=== PATIENT | female | born 1945 | race Caucasian/White ===

== ENCOUNTER 2017-06-12 16:14 | Inpatient (IN) | payer MEDICARE, OTHER ==
[2017-06-12] MEDS ORDERED: ACETAMINOPHEN 325 MG TAB PO (19:00)
[2017-06-12] MEDS ORDERED: HYDROCODONE/APAP (5/325) TAB PO ×2 (19:00)
[2017-06-12] MEDS ORDERED: NACL 0.9% 3 ML SYG IV (19:00)
[2017-06-12] MEDS ORDERED: ZOLPIDEM 5 MG TAB PO (19:00)
[2017-06-12] MEDS: predniSONE 5 MG TAB PO (19:00)
[2017-06-12] MEDS ORDERED: DOCUSATE SODIUM 100 MG CAP PO (19:00)
[2017-06-12] MEDS ORDERED: ONDANSETRON 4 MG INJ IV (19:00)
[2017-06-12] MEDS ORDERED: FLUTICASONE 0.05% 16 GM NAS SPRAY NASAL (21:00)
[2017-06-12] MEDS: FLUTICASONE 0.05% 16 GM NAS SPRAY NASAL (21:00)
[2017-06-12] MEDS ORDERED: SALMETEROL/FLUTICASONE 250/50 INHA INH (21:00)
[2017-06-12] MEDS: SOD CHLORIDE 0.9% 1,000 ML IV (21:39)
[2017-06-12] MEDS: AMOXICILLIN 500 MG CAP PO (21:43)
[2017-06-12 21:44] LABS: ADD MAN DIFF? NO
[2017-06-12] MEDS: HYDROCODONE/APAP (10/325) TAB PO (21:44)
[2017-06-12 21:45] LABS: BASOPHILS % 0.2 % (0.0-2.0); EOSINOPHILS % 0.1 % (0.0-7.0); HEMATOCRIT 39.7 % (37.0-47.0); HEMOGLOBIN 13.3 g/dl (12.0-16.0); LYMPHOCYTES # 1.7 10^3/ul (0.8-2.9); LYMPHOCYTES % 18.5 % (15.0-51.0); MEAN CORPUSCULAR HEMOGLOBIN 31.4 pg (29.0-33.0); MEAN CORPUSCULAR HGB CONC 33.5 g/dl (32.0-37.0); MEAN CORPUSCULAR VOLUME 93.9 fl (82.0-101.0); MEAN PLATELET VOLUME 11.8 fl (7.4-10.4); MONOCYTE # 0.7 10^3/ul (0.3-0.9); MONOCYTES % 7.5 % (0.0-11.0); NEUTROPHIL # 6.6 10^3/ul (1.6-7.5); NEUTROPHILS % 73.3 % (39.0-77.0); PLATELET COUNT 197 10^3/UL (140-415); RED BLOOD COUNT 4.23 10^6/ul (4.20-5.40); RED CELL DISTRIBUTION WIDTH 12.7 % (11.5-14.5)
[2017-06-12] MEDS ORDERED: METHYLPHENIDATE 5 MG TAB PO (22:00)
[2017-06-12] MEDS ORDERED: SALMETEROL/FLUTICASONE 100/50 INHA INH (22:00)
[2017-06-12 22:08] LABS: ALANINE AMINOTRANSFERASE 39 IU/L (13-69); ALBUMIN 4.1 g/dl (3.3-4.9); ALBUMIN/GLOBULIN RATIO 1.32; ALKALINE PHOSPHATASE 47 IU/L (42-121); AMYLASE 89 U/L (11-123); ANION GAP 16 (8-16); ASPARTATE AMINO TRANSFERASE 29 IU/L (15-46); BILIRUBIN,INDIRECT 0.4 mg/dl (0-1.1); BILIRUBIN,TOTAL 0.4 mg/dl (0.2-1.3); BLOOD UREA NITROGEN 14 mg/dl (7-20); CALCIUM 9.3 mg/dl (8.4-10.2); CARBON DIOXIDE 27 mmol/L (21-31); CHLORIDE 105 mmol/L (97-110); CREATININE 0.61 mg/dl (0.44-1.00); GLUCOSE 89 mg/dl (70-220); LIPASE 81 U/L (23-300); MAGNESIUM 2.1 mg/dl (1.7-2.5); PHOSPHORUS 3.6 mg/dl (2.5-4.9); POTASSIUM 4.2 mmol/L (3.5-5.1); SODIUM 144 mmol/L (135-144); TOTAL PROTEIN 7.2 g/dl (6.1-8.1)
[2017-06-12 22:54] LABS: ERYTHROCYTE SEDIMENTATION RATE 10 mm/Hr (0-30)
[2017-06-13] MEDS: AMOXICILLIN 500 MG CAP PO ×6 (01:25→23:07)
[2017-06-13] MEDS: LEVOTHYROXINE 75 MCG TAB PO ×2 (01:26→09:33)
[2017-06-13] MEDS: PANTOPRAZOLE (EC) 40 MG TAB PO (01:26)
[2017-06-13] MEDS: HYDROCODONE/APAP (10/325) TAB PO ×3 (04:46→20:49)
[2017-06-13] MEDS: FLUTICASONE 0.05% 16 GM NAS SPRAY NASAL ×2 (09:00→20:40)
[2017-06-13] MEDS: predniSONE 5 MG TAB PO (09:21)
[2017-06-13] MEDS: SALMETEROL/FLUTICASONE 250/50 INHA INH ×2 (09:23→20:40)
[2017-06-13] MEDS ORDERED: LIDOCAINE 100 MG SYRINGE (12:33)
[2017-06-13] MEDS ORDERED: PROPOFOL 40 ML (12:33)
[2017-06-13] MEDS ORDERED: MIDAZOLAM IV (13:29)
[2017-06-13] MEDS: SOD CHLORIDE 0.9% 1,000 ML IV (14:23)
[2017-06-14] MEDS: AMOXICILLIN 500 MG CAP PO ×2 (01:20→12:15)
[2017-06-14] MEDS: PANTOPRAZOLE (EC) 40 MG TAB PO (01:21)
[2017-06-14] MEDS: LEVOTHYROXINE 75 MCG TAB PO (01:21)
[2017-06-14] MEDS: HYDROCODONE/APAP (10/325) TAB PO ×2 (02:25→12:16)
[2017-06-14] MEDS: SOD CHLORIDE 0.9% 1,000 ML IV ×2 (03:54→12:27)
[2017-06-14] MEDS ORDERED: METOCLOPRAMIDE 10 MG INJ IV (09:00)
[2017-06-14] MEDS: FLUTICASONE 0.05% 16 GM NAS SPRAY NASAL (09:56)
[2017-06-14] MEDS: SALMETEROL/FLUTICASONE 250/50 INHA INH (09:56)
[2017-06-14] MEDS: predniSONE 10 MG TAB PO (12:16)
[2017-06-14 15:50] LABS: ADD UMIC YES; UR ASCORBIC ACID NEGATIVE (NEGATIVE); UR BILIRUBIN (Dip) NEGATIVE (NEGATIVE); UR BLOOD (Dip) 1+ mg/dL (NEGATIVE); UR CLARITY CLEAR (CLEAR); UR COLOR STRAW (YELLOW); UR GLUCOSE (Dip) NEGATIVE (NEGATIVE); UR KETONES (Dip) NEGATIVE (NEGATIVE); UR LEUKOCYTE ESTERASE (Dip) NEGATIVE Leu/ul (NEGATIVE); UR NITRITE (Dip) NEGATIVE (NEGATIVE); UR RBC 1 /HPF (0-5); UR SPECIFIC GRAVITY (Dip) 1.006 (1.003-1.030); UR TOTAL PROTEIN (Dip) NEGATIVE (NEGATIVE); UR UROBILINOGEN (Dip) NEGATIVE (NEGATIVE); UR WBC 0 /HPF (0-5)
[2017-06-14 15:52] LABS: OCCULT BLOOD STOOL NEGATIVE (NEGATIVE)
[2017-06-14 16:02] LABS: PROTEIN/CREAT RATIO 0.32 RATIO
== END 2017-06-14 20:15 | disposition home or self-care (01) | DRG 392 ==
LOC: MS2 16:14
PROC: 0DB58ZX Excision of Esophagus, Via Natural or Artificial Opening Endoscopic, Diagnostic (ICD-10-PCS; principal; 2017-06-13 11:52)
PROC: 0DB78ZX Excision of Stomach, Pylorus, Via Natural or Artificial Opening Endoscopic, Diagnostic (ICD-10-PCS; 2017-06-13 11:52)
PROC: 0DB68ZX Excision of Stomach, Via Natural or Artificial Opening Endoscopic, Diagnostic (ICD-10-PCS; 2017-06-13 11:52)
DX: K21.0 Gastro-esophageal reflux disease with esophagitis (principal); R63.0 Anorexia; E03.9 Hypothyroidism, unspecified; K29.70 Gastritis, unspecified, without bleeding; B18.2 Chronic viral hepatitis C; Z68.29 Body mass index [BMI] 29.0-29.9, adult; K31.7 Polyp of stomach and duodenum
CPT/HCPCS: 71045; 76700; 78264; 80053; 81001; 81003; 82150; 82270; 82570; 83690; 83735; 84100; 85025; 85651; 88305; 88312; 88313; 93005

== ENCOUNTER 2018-09-09 16:59 | Observation (INO) | payer MEDICARE, OTHER ==
[2018-09-09] MEDS ORDERED: NACL 0.9% 3 ML SYG IV (17:30)
[2018-09-09] MEDS ORDERED: ONDANSETRON 4 MG INJ IV (17:30)
[2018-09-09] MEDS ORDERED: ACETAMINOPHEN 325 MG TAB PO (17:30)
[2018-09-09] MEDS: METOCLOPRAMIDE 10 MG INJ IV ×2 (18:00→23:25)
[2018-09-09] MEDS ORDERED: PANTOPRAZOLE 40 MG INJ IV (18:00)
[2018-09-09] MEDS: predniSONE 5 MG TAB PO (18:00)
[2018-09-09 18:03] LABS: ADD MAN DIFF? NO
[2018-09-09 18:05] LABS: WHITE BLOOD COUNT 8.3 10^3/ul (4.8-10.8)
[2018-09-09 18:05] LABS: BASOPHIL # 0.1 10^3/ul (0.0-0.1); BASOPHILS % 0.6 % (0.0-2.0); EOSINOPHILS # 0.4 10^3/ul (0.0-0.5); EOSINOPHILS % 4.3 % (0.0-7.0); HEMATOCRIT 42.3 % (37.0-47.0); HEMOGLOBIN 13.8 g/dl (12.0-16.0); LYMPHOCYTES % 24.1 % (15.0-51.0); MEAN CORPUSCULAR HEMOGLOBIN 31.2 pg (29.0-33.0); MEAN CORPUSCULAR HGB CONC 32.6 g/dl (32.0-37.0); MEAN CORPUSCULAR VOLUME 95.7 fl (82.0-101.0); MEAN PLATELET VOLUME 11.2 fl (7.4-10.4); MONOCYTE # 0.8 10^3/ul (0.3-0.9); MONOCYTES % 9.9 % (0.0-11.0); NEUTROPHILS % 60.9 % (39.0-77.0); PLATELET COUNT 192 10^3/UL (140-415); RED BLOOD COUNT 4.42 10^6/ul (4.20-5.40); RED CELL DISTRIBUTION WIDTH 12.8 % (11.5-14.5)
[2018-09-09 18:21] LABS: IRON 72 ug/dl (35-150)
[2018-09-09 18:21] LABS: AMYLASE 182 U/L (11-123)
[2018-09-09 18:22] LABS: ALANINE AMINOTRANSFERASE 41 IU/L (13-69); ALBUMIN 4.2 g/dl (3.3-4.9); ALKALINE PHOSPHATASE 57 IU/L (42-121); ANION GAP 10 (5-13); ASPARTATE AMINO TRANSFERASE 43 IU/L (15-46); BILIRUBIN,INDIRECT 0.9 mg/dl (0-1.1); BILIRUBIN,TOTAL 0.9 mg/dl (0.2-1.3); BLOOD UREA NITROGEN 11 mg/dl (7-20); CALCIUM 8.9 mg/dl (8.4-10.2); CARBON DIOXIDE 27 mmol/L (21-31); CHLORIDE 101 mmol/L (97-110); CREATININE 0.69 mg/dl (0.44-1.00); Estimated GFR > 60 mL/min (>60); GLUCOSE 77 mg/dl (70-220); LIPASE 58 U/L (23-300); POTASSIUM 3.7 mmol/L (3.5-5.1); SODIUM 138 mmol/L (135-144)
[2018-09-09 18:30] LABS: % IRON SATURATION 23 % SAT (22-52); TOTAL IRON BINDING CAPACITY 307 ug/dl (241-421)
[2018-09-09 19:04] LABS: ERYTHROCYTE SEDIMENTATION RATE 5 mm/Hr (0-30)
[2018-09-09] MEDS: FAMOTIDINE 20 MG INJ IV (23:25)
[2018-09-09] MEDS: DEXTROSE 5%-0.9% NACL 1,000 ML IV (23:25)
[2018-09-09] MEDS ORDERED: SOD CHLORIDE 0.9% 100 ML (23:49)
[2018-09-09] MEDS ORDERED: IOHEXOL 300MG/ML 150 ML BTL (23:49)
[2018-09-10 04:20] LABS: ADD UMIC YES; UR ASCORBIC ACID NEGATIVE (NEGATIVE); UR BILIRUBIN (Dip) NEGATIVE (NEGATIVE); UR BLOOD (Dip) 3+ mg/dL (NEGATIVE); UR CLARITY CLEAR (CLEAR); UR COLOR STRAW (YELLOW); UR GLUCOSE (Dip) NEGATIVE (NEGATIVE); UR KETONES (Dip) TRACE mg/dL (NEGATIVE); UR LEUKOCYTE ESTERASE (Dip) NEGATIVE Leu/ul (NEGATIVE); UR NITRITE (Dip) NEGATIVE (NEGATIVE); UR RBC 0 /HPF (0-5); UR SPECIFIC GRAVITY (Dip) 1.029 (1.003-1.030); UR TOTAL PROTEIN (Dip) NEGATIVE (NEGATIVE); UR UROBILINOGEN (Dip) NEGATIVE (NEGATIVE); UR WBC 1 /HPF (0-5)
[2018-09-10] MEDS: METOCLOPRAMIDE 10 MG INJ IV ×3 (05:54→17:12)
[2018-09-10 06:20] LABS: HEMOGLOBIN A1C 5.4 % (0-5.9)
[2018-09-10] MEDS ORDERED: morphine 2 MG INJ IV (09:00)
[2018-09-10] MEDS ORDERED: clonAZEPAM 0.5 MG TAB PO (09:30)
[2018-09-10] MEDS: HYDROCODONE/APAP (10/325) TAB PO ×2 (11:14→18:27)
[2018-09-10] MEDS: predniSONE 5 MG TAB PO (11:14)
[2018-09-10] MEDS: clonAZEPAM 0.5 MG TAB PO ×2 (11:22→21:01)
[2018-09-10] MEDS: DEXTROSE 5%-0.9% NACL 1,000 ML IV (12:38)
[2018-09-10] MEDS: LACTULOSE 30ML CUP PO ×3 (14:37→21:00)
[2018-09-10] MEDS: MAGNESIUM CITRATE 300 ML BTL PO (14:37)
[2018-09-10 14:55] LABS: OCCULT BLOOD STOOL NEGATIVE (NEGATIVE)
[2018-09-10] MEDS: LEVOTHYROXINE 75 MCG TAB PO (17:12)
[2018-09-10] MEDS: AL HYDROX/MG HYDROX/SIMETH 30 ML CUP PO (21:00)
[2018-09-10] MEDS: FAMOTIDINE 20 MG TAB PO (21:01)
[2018-09-10] MEDS: HYDROCORTISONE 2.5% 28.35 GM OINT TOP (21:52)
[2018-09-10] MEDS: PETROLATUM 28.35 GM JELLY TOP (21:52)
[2018-09-11] MEDS: LACTULOSE 30ML CUP PO
[2018-09-11] MEDS: HYDROCODONE/APAP (10/325) TAB PO
[2018-09-11] MEDS: METOCLOPRAMIDE 10 MG INJ IV ×5 (00:11→17:54)
[2018-09-11] MEDS: DEXTROSE 5%-0.9% NACL 1,000 ML IV ×3 (02:27→16:33)
[2018-09-11] MEDS: DIPHENOXYLATE/ATROPINE TAB PO (02:41)
[2018-09-11] MEDS: LEVOTHYROXINE 75 MCG TAB PO ×2 (06:00→07:01)
[2018-09-11 07:40] LABS: ADD MAN DIFF? NO
[2018-09-11 07:56] LABS: BASOPHILS % 0.4 % (0.0-2.0); EOSINOPHILS # 0.4 10^3/ul (0.0-0.5); EOSINOPHILS % 5.5 % (0.0-7.0); HEMATOCRIT 36.8 % (37.0-47.0); HEMOGLOBIN 11.9 g/dl (12.0-16.0); LYMPHOCYTES # 2.6 10^3/ul (0.8-2.9); LYMPHOCYTES % 33.5 % (15.0-51.0); MEAN CORPUSCULAR HGB CONC 32.3 g/dl (32.0-37.0); MEAN CORPUSCULAR VOLUME 95.8 fl (82.0-101.0); MEAN PLATELET VOLUME 11.5 fl (7.4-10.4); MONOCYTE # 0.8 10^3/ul (0.3-0.9); MONOCYTES % 10.8 % (0.0-11.0); NEUTROPHIL # 3.8 10^3/ul (1.6-7.5); NEUTROPHILS % 49.5 % (39.0-77.0); PLATELET COUNT 165 10^3/UL (140-415); RED BLOOD COUNT 3.84 10^6/ul (4.20-5.40); RED CELL DISTRIBUTION WIDTH 12.6 % (11.5-14.5)
[2018-09-11 07:56] LABS: WHITE BLOOD COUNT 7.8 10^3/ul (4.8-10.8)
[2018-09-11 08:15] LABS: ANION GAP 5 (5-13); BLOOD UREA NITROGEN 5 mg/dl (7-20); CALCIUM 8.5 mg/dl (8.4-10.2); CARBON DIOXIDE 26 mmol/L (21-31); CHLORIDE 110 mmol/L (97-110); CREATININE 0.61 mg/dl (0.44-1.00); Estimated GFR > 60 mL/min (>60); GLUCOSE 88 mg/dl (70-220); MAGNESIUM 2.3 mg/dl (1.7-2.5); PHOSPHORUS 3.4 mg/dl (2.5-4.9); POTASSIUM 3.5 mmol/L (3.5-5.1); SODIUM 141 mmol/L (135-144)
[2018-09-11] MEDS: LEVOTHYROXINE 25 MCG TAB PO (08:30)
[2018-09-11] MEDS: clonAZEPAM 0.5 MG TAB PO (09:00)
[2018-09-11] MEDS: predniSONE 5 MG TAB PO (09:00)
[2018-09-11] MEDS: HYDROCORTISONE 2.5% 28.35 GM OINT TOP (09:00)
[2018-09-11] MEDS: FAMOTIDINE 20 MG TAB PO (09:00)
[2018-09-11] MEDS: PETROLATUM 28.35 GM JELLY TOP ×2 (09:21→13:00)
[2018-09-11] MEDS: POTASSIUM CHLORIDE 50 ML IVPB ×3 (11:57→16:33)
[2018-09-11] MEDS ORDERED: PROPOFOL 40 ML (13:10)
[2018-09-11] MEDS ORDERED: LIDOCAINE 2% (SDV) 5 ML INJ (13:10)
[2018-09-11] MEDS ORDERED: LABETALOL HCL 20MG INJ IV ×2 (13:30)
[2018-09-11] MEDS ORDERED: EPHEDrine 25 MG/5 ML SYG IV ×2 (13:30)
[2018-09-11] MEDS ORDERED: ALBUMIN HUMAN 5% 250 ML IV ×2 (13:30)
[2018-09-11] MEDS ORDERED: LEVALBUTEROL (NEB) 0.63 MG/3 ML AMP HHN (13:30)
[2018-09-11] MEDS ORDERED: ALBUTEROL 0.083% (NEB) 2.5 MG/3 ML AMP HHN ×2 (13:30)
[2018-09-11] MEDS ORDERED: ONDANSETRON 4 MG INJ IV ×2 (13:30)
[2018-09-11] MEDS ORDERED: hydrALAzine 20 MG INJ IV ×2 (13:30)
[2018-09-11] MEDS ORDERED: CLOBETASOL 0.05% 15 GM CR TOP (21:00)
[2018-09-11] MEDS ORDERED: DESOXIMETASONE TOP (21:00)
[2018-09-12] MEDS ORDERED: LEVOTHYROXINE 100 MCG TAB PO (06:00)
== END 2018-09-11 18:55 | disposition home or self-care (01) ==
LOC: PP2 16:59
PROVIDERS: Internal Medicine
DX: R63.4 Abnormal weight loss (principal); Z68.22 Body mass index [BMI] 22.0-22.9, adult; R10.9 Unspecified abdominal pain; K20.9 Esophagitis, unspecified; K29.50 Unspecified chronic gastritis without bleeding; K31.7 Polyp of stomach and duodenum; K64.8 Other hemorrhoids; R19.7 Diarrhea, unspecified; B19.20 Unspecified viral hepatitis C without hepatic coma; M17.0 Bilateral primary osteoarthritis of knee; J45.909 Unspecified asthma, uncomplicated; E03.9 Hypothyroidism, unspecified; F41.9 Anxiety disorder, unspecified
CPT/HCPCS: 43239; 71045; 71260; 74177; 80048; 80053; 81001; 82150; 82270; 82607; 82728; 83036; 83540; 83690; 83735; 84100; 84443; 85025; 85651; 86803; 88305; 88312; 93005